=== PATIENT | male | born 1955 | race Caucasian/White ===

== ENCOUNTER → 2018-06-21 | Outpatient (CLI) | payer OTHER | END | disposition home or self-care (01) | LOC: LAB SHORT 16:37 → LAB EV 16:37 | DX: L72.3 Sebaceous cyst (principal) | CPT/HCPCS: 87070; 87077; 87186; 87205 ==

== ENCOUNTER 2018-11-05 05:42 | Emergency (ER) | payer OTHER ==
[~2018-11-05] VITALS: Ht 180.3 cm; Wt 89.4 kg
[2018-11-05 06:54] LABS: Source, Urine Clean Catch
[2018-11-05 07:00] LABS: Appearance, Urine Clear (Clear); Bilirubin, Urine Neg (Neg); Blood, Urine Neg (Neg); Color, Urine Yellow (P-Yellow); Glucose Qualitative, Urine Neg (Neg); Ketones, Urine Neg (Neg); Leukocyte Esterase, Urine 2+ (Neg); Nitrite, Urine Neg (Neg); Protein, Urine Neg (Neg); Specific Gravity, Urine 1.025 (1.003-1.022); Urobilinogen, Urine NORM (Normal)
[2018-11-05 07:15] LABS: BASOPHILS ABSOLUTE AUTO 0.08 K/mm3 (0.00-0.23); BASOPHILS PERCENT AUTO 1 % (0-2); EOSINOPHILS ABSOLUTE AUTO 0.28 K/mm3 (0.00-0.68); EOSINOPHILS PERCENT AUTO 5 % (0-6); Hematocrit 46.8 % (37.0-53.0); Hemoglobin 15.4 g/dL (13.5-17.5); IMMATURE GRAN ABSOLUTE AUTO 0.02 K/mm3 (0.00-0.10); IMMATURE GRAN PERCENT AUTO 0 % (0-1); LYMPHOCYTES ABSOLUTE AUTO 2.05 K/mm3 (0.84-5.20); LYMPHOCYTES PERCENT AUTO 37 % (21-46); MONOCYTES PERCENT AUTO 9 % (4-13); Mean Corpuscular HGB 30.8 pg (26.0-34.0); Mean Corpuscular HGB Conc 32.9 g/dL (31.5-36.5); Mean Corpuscular Volume 94 fL (80-100); Mean Platelet Volume 10.6 fL (9.1-12.4); NEUTROPHILS ABSOLUTE AUTO 2.64 K/mm3 (1.96-9.15); NEUTROPHILS PERCENT AUTO 47 % (41-73); Platelet Count 241 K/mm3 (150-400); RDW Coefficient Variation 13.5 % (11.7-14.2); RDW Standard Deviation 46.9 fL (35.1-46.3); White Blood Cell Count 5.57 K/mm3 (4.00-11.30)
[2018-11-05 07:22] LABS: Influenza A Negative (NEGATIVE); Influenza B Negative (NEGATIVE)
[2018-11-05 07:26] LABS: Alanine Aminotransfer (ALT/SGP 34 U/L (12-78); Albumin, Blood 3.6 g/dL (3.4-5.0); Alk Phos 68 U/L (50-136); Anion Gap 7 mmol/L (6-16); Aspartate Aminotrans (AST/SGOT 22 U/L (12-37); Bilirubin, Total 0.5 mg/dL (0.1-1.0); Blood Urea Nitrogen 16 mg/dL (8-24); CO2, Blood 25 mmol/L (21-32); Calcium, Blood 8.4 mg/dL (8.5-10.1); Chloride, Blood 110 mmol/L (98-108); Creatinine, Blood 1.07 mg/dL (0.60-1.20); Globulin, Blood 3.5 g/dL (2.2-4.0); Glomerular Filtration Rate >60 (60-); Glucose, Blood 100 mg/dL (70-99); Sodium, Blood 142 mmol/L (136-145); Total Protein, Blood 7.1 g/dL (6.4-8.2)
[2018-11-05 07:30] LABS: Red Blood Cells, Urine 0-2 /hpf (0-2)
[2018-11-05 07:33] LABS: Squamous Epithelial Cells Rare /hpf (Few)
[2018-11-05 07:34] LABS: Bacteria Rare /hpf
[2018-11-05 07:36] LABS: Mucus Heavy (0-Heavy)
[2018-11-05 09:21] LABS: Adenovirus F 40/41 Not Detected (NOT DETECT); Astrovirus Not Detected (NOT DETECT); Campylobacter Sp Not Detected (NOT DETECT); Cryptosporidium Not Detected (NOT DETECT); Cyclospora Cayetanensis Not Detected (NOT DETECT); E. Coli O157 Not Detected (NOT DETECT); Entamoeba Histolytica Not Detected (NOT DETECT); Enteroaggregative E. coli-EAEC Not Detected (NOT DETECT); Enteropathogenic E. coli-EPEC Detected (NOT DETECT); Enterotoxigenic E. coli-ETEC Not Detected (NOT DETECT); Giardia Lamblia Not Detected (NOT DETECT); Norovirus GI/GII Not Detected (NOT DETECT); Plesiomonas Shigelloides Not Detected (NOT DETECT); Rotavirus A Not Detected (NOT DETECT); Salmonella Sp Not Detected (NOT DETECT); Sapovirus Not Detected (NOT DETECT); Shiga Toxin-prod E. coli-STEC Not Detected (NOT DETECT); Shigella/Enteroin E. coli-EIEC Not Detected (NOT DETECT); Vibrio Cholerae Not Detected (NOT DETECT); Vibrio Sp Not Detected (NOT DETECT); Yersinia Enterocolitica Not Detected (NOT DETECT)
== END 2018-11-05 10:00 | disposition home or self-care (01) ==
LOC: ER 05:42
PROVIDERS: Emergency Medicine
DX: A04.4 Other intestinal Escherichia coli infections (principal); Z91.010 Allergy to peanuts
CPT/HCPCS: 36415; 80053; 81001; 83690; 85025; 87086; 87507; 87804; 96361; 96374; 99283-25; J2405; J7030

== ENCOUNTER 2022-09-06 07:28 | Day surgery (SDC) | payer MEDICARE ==
[~2022-09-06] VITALS: Ht 154.9 cm; Wt 89.8 kg
[2022-09-06] MEDS ORDERED: COLLAGEN 15001 EACH (08:07)
[2022-09-06] MEDS ORDERED: FISH OIL 1,2001 EAC7 (08:07)
[2022-09-06] MEDS ORDERED: Vitamin C100 M1 (08:08)
== END 2022-09-06 09:55 | disposition home or self-care (01) ==
LOC: ORSCSDS 07:28
PROVIDERS: Internal Medicine Gastroenterology
PROC: 0DBN8ZX Excision of Sigmoid Colon, Via Natural or Artificial Opening Endoscopic, Diagnostic (ICD-10-PCS; principal; 2022-09-06 08:45)
PROC: 0DBL8ZX Excision of Transverse Colon, Via Natural or Artificial Opening Endoscopic, Diagnostic (ICD-10-PCS; principal; 2022-09-06 08:45)
DX: Z12.11 Encounter for screening for malignant neoplasm of colon (principal); D12.3 Benign neoplasm of transverse colon; D12.5 Benign neoplasm of sigmoid colon; E78.5 Hyperlipidemia, unspecified; K57.30 Diverticulosis of large intestine without perforation or abscess without bleeding; K64.8 Other hemorrhoids
CPT/HCPCS: 88305; J2704; J7120

== ENCOUNTER 2025-07-29 05:37 | Day surgery (SDC) | payer MEDICARE ==
[~2025-07-29] VITALS: Ht 177.8 cm; Wt 86.0 kg
[2025-07-29] VITALS (18 sets, daily range): BP systolic 125–162; BP diastolic 78–96
[~2025-07-29 05:37] MED LIST: COLLAGEN 15001 EACH; FISH OIL 1,2001 EAC7; OLME20 PO; Vitamin C100 M1; [UNRECOGNIZED DRUG - OTHER] PO
[2025-07-29] MEDS ORDERED: Ropivacaine 0.5% HCl/Pf 123.125 MG,EPINEPHrine HCL 0.25 MG,Ketorolac Tromethamine 15 MG... INFIL SCH (06:15)
[2025-07-29] MEDS ORDERED: Chlorhexidine Mouth Care 15 ML UDC MT SCH (06:15)
[2025-07-29] MEDS ORDERED: Tranexamic Acid 100 ML IV SCH (06:15)
[2025-07-29] MEDS ORDERED: CeFAZolin Sodium 2,000 MG in NS 100 ML IV SCH ×2 (06:15→16:00)
[2025-07-29] MEDS ORDERED: CeFAZolin Sodium 2,000 MG VIAL ONE (06:50)
--- NOTE | 2025-07-29 06:55 | NUR ---
History, Chart, Medications and Allergies reviewed before start of procedure. Patient confirms NPO status and agrees with scheduled surgery. Patient reports completing Chlorhexadine shower X2 prior to admission to hospital. Pre-Op teaching done. Pt verbalizes understanding. Lungs clear T/O to Auscultation.
[2025-07-29] MEDS ORDERED: HYDROmorphone HCl/Pf 1MG SYR IV PRN ×3 (07:05→08:25)
[2025-07-29] MEDS ORDERED: Metoclopramide HCl 5MG / ML 2ML Vial IV PRN ×2 (07:10→08:25)
[2025-07-29] MEDS ORDERED: FLU VACC TS2025(65UP)/MF59C/PF 45 MCG/0.5 ML SYRINGE IM SCH (07:10)
[2025-07-29] MEDS ORDERED: Ondansetron HCl 2 MG / ML 2ML Vial IV PRN (07:10)
[2025-07-29] MEDS ORDERED: Magnesium Hydroxide Conc 10 ML UDC PO PRN (07:10)
[2025-07-29] MEDS ORDERED: Midazolam HCl 1MG / ML 2ML Vial ONE (07:19)
[2025-07-29] MEDS ORDERED: Phenylephrine HCl 100 MCG/ML-NS 10MLSYR (1MG/10ML) ONE (07:44)
[2025-07-29] MEDS ORDERED: Ondansetron HCl 2 MG / ML 2ML Vial ONE (07:45)
[2025-07-29] MEDS ORDERED: ePHEDrine Sulfate 50 MG/ML 1ML Injection ONE (07:50)
[2025-07-29] MEDS ORDERED: FentaNYL Citrate 50 MCG/ML 2 ML Injection IV PRN ×2 (08:20)
[2025-07-29] MEDS ORDERED: Albuterol 2.5 MG/3 ML VIAL INH PRN (08:20)
[2025-07-29] MEDS ORDERED: Dexamethasone Sod Phos 10 MG/ML 1ML VIAL ONE (08:44)
--- NOTE | 2025-07-29 10:44 | NUR ---
"Spiritual Care | Family support While Pt. is waiting to be moved from post op to his surgial recvery room, met with Spouse and her friend in the waiting area. SPouse verbalized being encouraged by the doctors prognosis for the Pt. WIll seek to visit Pt. later in the morning. Spouse verblaized gratitude for the spiritual care visit."
[2025-07-29] MEDS ORDERED: HYDROmorphone HCl/Pf 1MG SYR ONE (10:53)
[2025-07-29] MEDS ORDERED: Ketorolac Tromethamine 30mg Vial ONE (11:18)
[2025-07-29] MEDS ORDERED: Ketorolac Tromethamine 15mg Vial IV SCH (12:00)
--- NOTE | 2025-07-29 12:05 | NUR ---
ARRIVAL TO SURG FLOOR TO FLOOR VIA JAILENE @ [id number]. A&O x4, VSS. L KNEE w/TELFA & TEGADERM, C/D/I. POLAR PACK IN PLACE. ABLE TO WIGGLE TOES & MOVE LEGS, BUT STATES RESIDUAL NUMBNESS. NO PAIN AT THIS TIME. SNACKS & DRINKS GIVEN. CALL LIGHT WITHIN REACH.
--- NOTE | 2025-07-29 14:26 | NUR ---
Spiritual Care Visit. Pt. is awake in his bed when he welcomes my visit. Pt. is pleasant and is known to this chpalian from the community. Spouse is at bedside. Pt. verbalizes details of his current condition. Normalize the Pts. experience and consider matters of azael and belief. Pt. verbalized he was ready for a nap. Took Pt.s hand and prayed for his recovery. Pt. and spouse verbalize gratitude fo rthe spiritual care visit.
[2025-07-29] MEDS ORDERED: ACET500 PO (15:09)
[2025-07-29] MEDS ORDERED: ASPI81CH PO (15:09)
[2025-07-29] MEDS ORDERED: OXYC5 PO (15:10)
[2025-07-29] MEDS ORDERED: SULTRIDS PO (15:10)
[2025-07-29] MEDS ORDERED: ONDA4ODT MM (15:11)
--- NOTE | 2025-07-29 17:10 | NUR ---
DISCHARGE SUMMARY POD 0 L TKA. A&O x4, VSS. TOLERATING FOOD & FLUIDS WELL. L KNEE w/TELFA & TEGADERM & ELMER WRAP, C/D/I. VOIDED SUCCESSFULLY. MINIMAL PAIN - CONTROLLED WELL PER EMAR. WORKED w/THERAPY - AMBULATED IN HALLWAY & ROOM. DISCHARGE INSTRUCTIONS REVIEWED & GIVEN. POLAR PACK SENT. ESCORTED OUT VIA WC.
[2025-07-30] MEDS ORDERED: Trimethoprim/Sulfamethoxazole DS Tab PO SCH (09:00)
== END 2025-07-29 16:57 | disposition home or self-care (01) ==
LOC: ORSCMMR 05:37 → ORD 07:30 → SURS 11:27 → ORSCMMR 16:57
PROVIDERS: Orthopaedic Surgery
PROC: 0SRD0J9 Replacement of Left Knee Joint with Synthetic Substitute, Cemented, Open Approach (ICD-10-PCS; principal; 2025-07-29 07:30)
DX: M17.12 Unilateral primary osteoarthritis, left knee (principal); I10 Essential (primary) hypertension; J45.909 Unspecified asthma, uncomplicated; Z79.899 Other long term (current) drug therapy
CPT/HCPCS: 73560-LT; 97110; 97116; 97161; A9270; C1713; C1776; J0166; J0690; J0735; J1100; J1171; J1885; J2250; J2371; J2405; J2704; J2795; J3373; J7050; J7120